=== PATIENT | male | born 1970 | race African-American/Black ===

== ENCOUNTER 2020-08-22 20:33 | Emergency (ER) | payer OTHER ==
[~2020-08-22] VITALS: Ht 172.7 cm; Wt 90.9 kg
[2020-08-22 20:59] VITALS: BP 161/93
[2020-08-22] MEDS ORDERED: ketorolac tromethamine 15mg/ml inj. IM ONE (23:05)
[2020-08-22] MEDS ORDERED: IBUP-1984 PO (23:39)
== END 2020-08-23 00:11 | disposition home or self-care (01) ==
LOC: ER 20:35
DX: S86.002A Unspecified injury of left Achilles tendon, initial encounter (principal); M25.572 Pain in left ankle and joints of left foot; Z79.899 Other long term (current) drug therapy; W51.XXXA Accidental striking against or bumped into by another person, initial encounter; Y93.67 Activity, basketball; Y92.89 Other specified places as the place of occurrence of the external cause; Y99.8 Other external cause status
CPT/HCPCS: 29515; 73610; 96372; 99283; J1885; 99284